=== PATIENT | female | born 1995 | race Two or more races ===

== ENCOUNTER 2024-09-22 18:10 | Emergency (ER) | payer OTHER ==
[~2024-09-22] VITALS: Ht 162.6 cm; Wt 88.0 kg
[2024-09-22] MEDS ORDERED: KETOROLAC TROMETHAMINE 30 MG VIAL IV ONE (19:00)
[2024-09-22] MEDS ORDERED: CEFTRIAXONE SODIUM 1,000 MG VIAL IV ONE (19:00)
[2024-09-22] MEDS ORDERED: 0.9 % SODIUM CHLORIDE 1,000 ML IV SCH (19:00)
[2024-09-22 19:36] LABS: HEMATOCRIT 42.7 % (36.0-45.00); HEMOGLOBIN 14.3 g/dL (12.0-15.00); MEAN CORPUSCULAR HEMOGLOBIN 29.9 pg (27.00-32.0); MEAN CORPUSCULAR HGB CONC 33.6 g/dl (32.0-36.0); PLATELET COUNT 234 K/uL (150-450); RED BLOOD COUNT 4.79 M/uL (4.00-6.00); RED CELL DISTRIBUTION WIDTH 12.8 % (11.5-14.5)
[2024-09-22] MEDS ORDERED: ONDANSETRON HCL 2 MG/ML VIAL IV STA (19:47)
[2024-09-22 20:09] LABS: ALBUMIN 4.2 gm/dL (3.4-5.0); BILIRUBIN TOTAL 0.42 mg/dL (0.3-1.2); CALCIUM 9.8 mg/dL (8.5-10.1); CREATININE SERUM 1.11 mg/dL (0.55-1.02); GFR 59.42; GLOBULINA 4.5 G/DL (2.4-3.5); POTASSIUM 4.09 mEq/L (3.5-5.1); TOTAL PROTEIN 8.7 gm/dL (6.4-8.2)
[2024-09-22 20:13] LABS: PH,URINE 6.5 (5.0-8.0); URINE APPEARANCE Clear; URINE BILIRRUBIN Negative (NEGATIVE); URINE BLOOD Negative; URINE COLOR Yellow; URINE GLUCOSE Negative (NEGATIVE); URINE KETONE Negative (NEGATIVE); URINE LEUKOCYTE Moderate; URINE NITRATE Negative; URINE PROTEIN Negative (NEGATIVE); URINE UROBILINOGEN 0.2 E.U./dl
[2024-09-22 20:17] LABS: URINE BACTERIA 3353.8 uL (0.0-1933); URINE EPITHELIAL CELLS 76.9 uL (0.0-38.8); URINE RBC 8.8 uL (0.0-20.8); URINE WBC 96.7 uL (0.0-23.2)
[2024-09-22] MEDS ORDERED: CIPRO500 MG PO (21:38)
== END 2024-09-22 21:42 | disposition home or self-care (01) ==
LOC: ER 18:12
PROVIDERS: General Practice
DX: N39.0 Urinary tract infection, site not specified (principal); K80.20 Calculus of gallbladder without cholecystitis without obstruction; Z88.2 Allergy status to sulfonamides

== ENCOUNTER 2025-01-03 15:53 | Emergency (ER) | payer OTHER ==
[~2025-01-03] VITALS: Ht 162.6 cm; Wt 84.8 kg
[~2025-01-03 15:53] MED LIST: CIPRO500 MG PO
[2025-01-03] MEDS ORDERED: ONDANSETRON HCL 2 MG/ML VIAL ONE (17:13)
[2025-01-03] MEDS ORDERED: LACTOBACILLUS ACIDOPHILUS 1 CAP CAP PO ONE ×2 (17:14→17:15)
[2025-01-03] MEDS ORDERED: ACETAMINOPHEN 500 MG GEL..CAP PO ONE ×2 (17:14→17:15)
[2025-01-03] MEDS ORDERED: FAMOTIDINE/PF 20 MG/2 ML VIAL ONE (17:14)
[2025-01-03] MEDS ORDERED: FAMOTIDINE/PF 20 MG/2 ML VIAL IV ONE (17:15)
[2025-01-03] MEDS ORDERED: 0.9 % SODIUM CHLORIDE 1,000 ML IV ONE (17:15)
[2025-01-03] MEDS ORDERED: ONDANSETRON HCL 2 MG/ML VIAL IV ONE (17:15)
[2025-01-03 17:49] LABS: HEMATOCRIT 40.7 % (36.0-45.00); HEMOGLOBIN 13.9 g/dL (12.0-15.00); MEAN CELL VOLUME 86.3 fL (80.00-100.00); MEAN CORPUSCULAR HEMOGLOBIN 29.4 pg (27.00-32.0); MEAN CORPUSCULAR HGB CONC 34.1 g/dl (32.0-36.0); PLATELET COUNT 239 K/uL (150-450); RED BLOOD COUNT 4.72 M/uL (4.00-6.00); RED CELL DISTRIBUTION WIDTH 13.3 % (11.5-14.5)
[2025-01-03 18:16] LABS: ALBUMIN 3.6 gm/dL (3.4-5.0); BILIRUBIN TOTAL 0.86 mg/dL (0.3-1.2); CALCIUM 9.2 mg/dL (8.5-10.1); CREATININE SERUM 0.88 mg/dL (0.55-1.02); GFR 77.08; GLOBULINA 4.5 G/DL (2.4-3.5); POTASSIUM 3.97 mEq/L (3.5-5.1); TOTAL PROTEIN 8.1 gm/dL (6.4-8.2)
[2025-01-03 20:45] LABS: URINE APPEARANCE Cloudy; URINE BILIRRUBIN Negative (NEGATIVE); URINE BLOOD Small; URINE COLOR Yellow; URINE GLUCOSE Negative (NEGATIVE); URINE KETONE Trace (NEGATIVE); URINE LEUKOCYTE Small; URINE NITRATE Negative; URINE PROTEIN Trace (NEGATIVE); URINE UROBILINOGEN 0.2 E.U./dl
[2025-01-03 20:49] LABS: URINE RBC 17.5 uL (0.0-20.8); URINE WBC 157.8 uL (0.0-23.2)
[2025-01-03 21:01] LABS: URINE BACTERIA > 9821.5 uL (0.0-1933); URINE CAST 0.58 uL (0.0-1.40); URINE EPITHELIAL CELLS > 201.7 uL (0.0-38.8)
[2025-01-03 21:08] LABS: URINE CRYSTALS MANY /HPF
[2025-01-03 21:09] LABS: URINE YEAST NEGATIVE /hpf
[2025-01-03] MEDS ORDERED: CEPHALEXIN500 M1 PO (21:15)
[2025-01-03] MEDS ORDERED: ZYRTEC10 MG PO (21:15)
[2025-01-03] MEDS ORDERED: TUSSIN DM LIQU118 ML PO (21:15)
[2025-01-03] MEDS ORDERED: ONDANSETRON HCL4 MG PO (21:26)
[2025-01-03] MEDS ORDERED: INTESTINEX680 M1 PO (21:26)
[2025-01-03] MEDS ORDERED: PEPCID AC20 MG PO (21:26)
== END 2025-01-03 21:41 ==
LOC: ER 15:55
PROVIDERS: Emergency Medicine
DX: U07.1 COVID-19 (principal); R19.7 Diarrhea, unspecified; Z88.2 Allergy status to sulfonamides; R11.2 Nausea with vomiting, unspecified; R10.9 Unspecified abdominal pain; M54.50 Low back pain, unspecified; N39.0 Urinary tract infection, site not specified
CPT/HCPCS: 36415; 96365; 96366; 99282; J2405; J3490; J7030

== ENCOUNTER 2025-09-07 10:18 | Emergency (ER) | payer OTHER ==
[~2025-09-07] VITALS: Ht 162.6 cm; Wt 89.8 kg
[~2025-09-07 10:18] MED LIST changes: +CEPHALEXIN500 M1 PO; +INTESTINEX680 M1 PO; +ONDANSETRON HCL4 MG PO; +PEPCID AC20 MG PO; +TUSSIN DM LIQU118 ML PO; +ZYRTEC10 MG PO
[2025-09-07] MEDS ORDERED: 0.9 % SODIUM CHLORIDE 1,000 ML IV ONE (12:30)
[2025-09-07] MEDS ORDERED: CLINDAMYCIN PHOSPHATE 150 MG/ML (600mg) IV ONE (12:30)
[2025-09-07] MEDS ORDERED: KETOROLAC TROMETHAMINE 15 MG VIAL IV ONE (12:30)
[2025-09-07] MEDS ORDERED: PANTOPRAZOLE SODIUM 40 MG/VIAL VIAL IV PUSH ONE (12:30)
[2025-09-07] MEDS ORDERED: KETOROLAC TROMETHAMINE 30 MG VIAL ONE (14:27)
[2025-09-07] MEDS ORDERED: CLINDAMYCIN PHOSPHATE 150 MG/ML (300mg) ONE (14:27)
[2025-09-07 15:12] LABS: BASO % 0.5 % (0.1-1.2); EOS # 0.14 (0.04-0.54); EOS % 1.2 % (0.7-7.0); LYMPH # 1.37 (1.18-3.74); LYMPH % 12.2 % (19.3-53.1); MEAN PLATELET VOLUME 10.00 fl (9.4-12.4); MONO # 0.67 (0.24-0.82); MONO % 6.0 % (4.7-12.5); NEUT # 8.96 (1.56-6.13); NEUT % 79.7 % (34.0-71.1); RED CELL DISTRIBUTION WIDTH 12.7 % (11.6-14.4)
[2025-09-07 15:42] LABS: URINE APPEARANCE Clear; URINE BILIRRUBIN Negative (NEGATIVE); URINE BLOOD Negative; URINE COLOR Yellow; URINE GLUCOSE Negative (NEGATIVE); URINE KETONE Negative (NEGATIVE); URINE LEUKOCYTE Trace; URINE NITRATE Negative; URINE PROTEIN Negative (NEGATIVE); URINE UROBILINOGEN 0.2 E.U./dl
[2025-09-07 15:43] LABS: URINE BACTERIA 980.3 uL (0.0-1933); URINE EPITHELIAL CELLS 26.3 uL (0.0-38.8); URINE RBC 13.7 uL (0.0-20.8); URINE WBC 14.7 uL (0.0-23.2)
[2025-09-07 15:45] LABS: BUN CREA RATIO 18 (7.0-25.0); CREATININE SERUM 0.74 mg/dL (0.55-1.02); GFR 94.14; GLUCOSE FASTING 93 mg/dL (65-100); OSMOLALITY SERUM 281 MOSM/KG (275-295)
[2025-09-07 15:52] LABS: URINE CAST 0.14 uL (0.0-1.40)
[2025-09-07 15:56] LABS: HCG QUANTITATIVE < 1 mUI/mL (1-3)
== END 2025-09-07 16:25 | disposition home or self-care (01) ==
LOC: ER 10:18
PROVIDERS: General Practice
DX: N75.1 Abscess of Bartholin's gland (principal); Z88.2 Allergy status to sulfonamides